=== PATIENT | female | born 1945 | race Caucasian/White ===

== ENCOUNTER → 2019-08-11 | Emergency (ER) | payer MEDICARE ==
[~2019-08-11] VITALS: Ht 165.1 cm; Wt 68.2 kg
[~2019-08-11] MED LIST: ALEN70TA15; IPRA30SP; LEVO50TA PO; LORazepam 2 mg/ml vial IM ONE; MELO7.5T12 PO; ziprasidone 20mg capsule PO SCH; ziprasidone IM 20mg inj **IM only IM ONE
--- NOTE | 2019-08-11 17:42 | NUR ---
found not in pts purse, sister gordon simental [phone]
[2019-08-11 17:43] LABS: BASOPHILS # (AUTO) 0.1 X10'3 (0-0.2); EOSINOPHILS # (AUTO) 0.2 X10'3 (0-0.9); EOSINOPHILS % (AUTO) 2.3 % (0-6); HEMATOCRIT 42.2 % (35.0-45.0); HEMOGLOBIN 14.2 g/dl (12.0-16.0); LYMPHOCYTES # (AUTO) 1.6 X10'3 (1.1-4.8); LYMPHOCYTES % (AUTO) 19.7 % (21-51); MEAN CORPUSCULAR HEMOGLOBIN 32.1 PG (27.0-31.0); MEAN CORPUSCULAR HGB CONC 33.7 g/dL (33.0-36.5); MEAN CORPUSCULAR VOLUME 95.2 FL (78-98); MEAN PLATELET VOLUME 8.6 FL (7.4-10.4); MONOCYTES # (AUTO) 0.5 X10'3 (0-0.9); MONOCYTES % (AUTO) 6.2 % (2-12); NEUTROPHILS # (AUTO) 5.6 X10'3 (1.8-7.7); NEUTROPHILS % (AUTO) 70.8 % (42-75); PLATELET COUNT 254 X10'3 (140-440); RED BLOOD COUNT 4.44 X10'6 (4.20-5.60); RED CELL DISTRIBUTION WIDTH 13.3 % (11.5-14.5); WHITE BLOOD COUNT 7.9 X10'3 (4.5-11.0)
--- NOTE | 2019-08-11 17:46 | NUR ---
pt unable to void at this time, will ask again later
[2019-08-11 17:57] LABS: ALANINE AMINOTRANSFERASE 20 U/L (12-78); ALBUMIN 3.6 G/DL (3.4-5.0); ALBUMIN/GLOBULIN RATIO 0.9 (1.1-1.5); ALKALINE PHOSPHATASE 103 IU/L (46-116); ANION GAP 4 (8-16); ASPARTATE AMINO TRANSFERASE 17 U/L (10-37); BLOOD UREA NITROGEN 23 MG/DL (7-18); BUN/CREATININE RATIO 21.1 (6.6-38.0); CALCIUM 8.9 MG/DL (8.5-10.1); CHLORIDE 107 MMOL/L (99-107); CREATININE 1.09 MG/DL (0.40-0.90); ETHANOL < 0.010 GM/DL (0.0-0.010); GLUCOSE 112 MG/DL (70-104); POTASSIUM 4.9 MMOL/L (3.5-5.1); SODIUM 143 MMOL/L (135-145); TOTAL CARBON DIOXIDE 31.9 MMOL/L (24-32); TOTAL PROTEIN 7.6 G/DL (6.4-8.2); eGFR 49 ML/MIN
[2019-08-11 18:43] LABS: CLARITY,URINE CLEAR (Clear); COLOR,URINE YELLOW (Yellow); GLUCOSE, URINE NEGATIVE (Neg); KETONES,URINE NEGATIVE (Neg); LEUKOCYTE ESTERASE ,URINE NEGATIVE (Neg); NITRITES, URINE NEGATIVE (Neg); OCCULT BLOOD,URINE TRACE-INTACT (Neg); PH,URINE 8.5 (4.8-8.0); PROTEIN,URINE NEGATIVE (Neg)
[2019-08-11 18:51] LABS: UA COLLECTION TYPE CLN CATCH MIDSTREAM
[2019-08-11 18:52] LABS: AMORPHOUS PHOSPHATES 1+; BACTERIA,URINE FEW /HPF (Neg); RBC,URINE 0-2 /HPF (0-2); SQUAMOUS EPITHELIAL CELL,UR FEW /LPF (FEW); WBC,URINE NONE SEEN /HPF (0-4)
[2019-08-11 19:00] LABS: URINE AMPHETAMINE SCREEN NEGATIVE (Neg); URINE BARBITUATE SCREEN NEGATIVE (Neg); URINE BENZODIAZEPINES SCREEN NEGATIVE (Neg); URINE CANNABINOID SCREEN NEGATIVE (Neg); URINE COCAINE SCREEN NEGATIVE (Neg); URINE METHADONE SCREEN NEGATIVE (Neg); URINE OPIATE SCREEN NEGATIVE (Neg); URINE PHENCYCLIDINE SCREEN NEGATIVE (Neg)
--- NOTE | 2019-08-11 20:01 | NUR ---
PT BROUGHT OVER FROM ED RM 16 TO OVERFLOW BED 25. PT STABLE AND ABLE TO ANSWER QUESTIONS. SHE DOES SEEM TO HAVE SOME CONFUSION BUT IS A&O X4; JUST UNSURE TO WHY SHE WAS BROUGHT IN. SHE ALSO COULD NOT GIVE ME A STRAIGHT ANSWER TO WHERE SHE RESIDES. PT STATES SHE DOES NOT HAVE ANY INTENTIONS ON HURTING HERSELF OR OTHERS. PT IS COMFORTABLE AND EATING DINNER. SHE DOES NOT APPEAR TO BE IN ANY DISCOMFORT OR DISTRESS. WILL CONTINUE TO MONITOR.
--- NOTE | 2019-08-11 20:05 | NUR ---
PT UNABLE TO ANSWER IF SHE TAKES ANY MEDICATIONS; SHE STATES THAT THEY G[facility]; SHE THINKS IT'S [facility] MEDICINE.
--- NOTE | 2019-08-11 21:00 | NUR ---
PT RESTING COMFORTABLY WITH NO SIGNS OF DISTRESS OR DISCOMFORT. RR REGULAR AND UNLABORED. WILL CONTINUE TO MONITOR.
--- NOTE | 2019-08-11 22:15 | NUR ---
PT SLEEPING AND DOES NOT APPEAR TO BE IN ANY DISCOMFORT OR DISTRESS. RR REGUALR AND UNLABORED. WILL CONTINUE TO MONITOR.
--- NOTE | 2019-08-12 00:02 | NUR ---
PT SLEEPING COMFORTABLY. NO SIGNS OF DISTRESS OR DISCOMFORT NOTED. RR REGULAR AND UNLABORED. WILL CONTINUE TO MONITOR.
--- NOTE | 2019-08-12 01:53 | NUR ---
PT CONTINUES TO SLEEP WITH NO SIGNS OF DISTRESS OR DISCOMFORT. RR REGULAR AND UNLABORED. WILL CONTINUE TO MONITOR.
--- NOTE | 2019-08-12 03:15 | NUR ---
PT SLEEPING ON LEFT SIDE; NO SIGNS OF DISTRESS NOTED. BREATHING IS NORMAL, UNLABORED AND REGULAR. WILL CONTINUE TO MONITOR.
--- NOTE | 2019-08-12 05:15 | NUR ---
PT APPEARS TO BE ASLEEP; WITH NO SIGNS OF DISTRESS OR DISCOMFORT. BREATHING RATE IS REGULAR, UNLABORED AND WNL. WILL CONTINUE TO MONITOR.
--- NOTE | 2019-08-12 05:26 | NUR ---
REVIEWED PT'S VS; NO CONCERNS WITH READINGS.
--- NOTE | 2019-08-12 06:30 | NUR ---
Resting with eyes closed, respirations normal.
--- NOTE | 2019-08-12 10:12 | NUR ---
SHERIN Rn seeing patient
--- NOTE | 2019-08-12 19:24 | NUR ---
Patient pleasantly confused, resting comfortably in hospital bed. She cannot tell me anything other than her .
--- NOTE | 2019-08-13 06:30 | NUR ---
pt is resting in bed.
--- NOTE | 2019-08-13 07:30 | NUR ---
pt ambulated to the bathroom
--- NOTE | 2019-08-13 08:30 | NUR ---
pt resting in bed eating breakfast
--- NOTE | 2019-08-13 08:37 | NUR ---
case management and group social worker paged about placement issues
--- NOTE | 2019-08-13 09:30 | NUR ---
pt is resting in bed no issues at this time
--- NOTE | 2019-08-13 10:30 | NUR ---
pt is resting in her bed
--- NOTE | 2019-08-13 11:30 | NUR ---
no issues at this time. pt is sitting in her bed
--- NOTE | 2019-08-13 12:30 | NUR ---
pt is resting in bed
--- NOTE | 2019-08-13 13:30 | NUR ---
pt is resting in bed
--- NOTE | 2019-08-13 14:30 | NUR ---
pt resting in bed.
--- NOTE | 2019-08-13 15:30 | NUR ---
judi is working on placement
--- NOTE | 2019-08-13 16:30 | NUR ---
no issues at this time
--- NOTE | 2019-08-13 19:37 | NUR ---
Patient is pleasantly confused, up to the bathroom w/o problem. She follows commands and is not a problem.
--- NOTE | 2019-08-14 05:53 | NUR ---
Patient wandering around confused and aggitated. She wants to leave and doesn't understand why we won't let her, [facility]. Jennifer cannot tell us where she is, what city she is in, or how she got here. All she knows is her name and . We have been able to redirect her so far, but she is getting more aggitated.
--- NOTE | 2019-08-14 06:43 | NUR ---
when this RN first came on shift pt was talking to night RN and tech about needing to get back to [place] and she didn't know why she was here. Pt starting to get agitated. Appeared that pt was not retaining information given to her by nursing staff as she was asking the same querstions over again. Pt finally settled and sat in bed. Pt will occationally get up quietly and walk around aimlessly and read signs on the wall, then go back and lay in bed. now laying in bed quietly, appearing to be calm at this time.
--- NOTE | 2019-08-14 08:34 | NUR ---
sitting up in bed eating breakfast. calm, quiet, coopertive.
--- NOTE | 2019-08-14 10:09 | NUR ---
resting quietly in bed.
--- NOTE | 2019-08-14 10:52 | NUR ---
Joan with [employer] at bedside to interview patient.
--- NOTE | 2019-08-14 11:37 | NUR ---
pt up and walking around the unit, asking where her shoes are. RN reassured her all of her belongings were together and safe. pt forgets conversation several minutes later and asks again where her belongings are. wandering around the unit, reading signs posted on the [facility], making her bed and folding sheets. asking why she can't leave the unit and stating she doesn't like being told what she can and can't do. pt starting to get aggitated.
--- NOTE | 2019-08-14 12:58 | NUR ---
sitting up in bed eating lunch. calm.
--- NOTE | 2019-08-14 14:43 | NUR ---
up to restroom independently. calm. returned to bed and continued to rest quietly.
--- NOTE | 2019-08-14 15:52 | NUR ---
resting quietly in bed
--- NOTE | 2019-08-14 17:54 | NUR ---
currently sitting up in bed. will walk around the unit occationally. warm blanket provided. pt calm and pleasant.
--- NOTE | 2019-08-14 19:00 | NUR ---
Pt eating dinner and reading magazines.
--- NOTE | 2019-08-14 20:00 | NUR ---
Pt resting quietly.
--- NOTE | 2019-08-14 21:00 | NUR ---
Pt up to bathroom. Pt cooperative and smiling.
--- NOTE | 2019-08-14 22:00 | NUR ---
Pt resting quietly, respirations normal, no s/s of distress.
--- NOTE | 2019-08-14 23:05 | NUR ---
Pt resting quietly, respirations normal, no s/s of distress.
--- NOTE | 2019-08-15 01:00 | NUR ---
Pt resting quietly, respirations normal, no s/s of distress.
--- NOTE | 2019-08-15 02:00 | NUR ---
Pt resting quietly, respirations normal, no s/s of distress.
--- NOTE | 2019-08-15 03:54 | NUR ---
Pt resting quietly, respirations normal, no s/s of distress.
--- NOTE | 2019-08-15 07:00 | NUR ---
Pt is sleeping on her back. Respirations even and unlabored.
--- NOTE | 2019-08-15 09:00 | NUR ---
Sitting up in bed. Pt is calm and cooperative. She is still confused. Only knows her name, but does not know where she is or how she got here.
--- NOTE | 2019-08-15 11:00 | NUR ---
Pt sitting up in bed, pleasant. Has ambulated to bathroom, steady gait noted. Forgetful.
--- NOTE | 2019-08-15 13:38 | NUR ---
Breaking primary RN, pt has just finsihed her lunch, she is appreciative with staff, no s/s of distress observed
--- NOTE | 2019-08-15 15:00 | NUR ---
Needs frequent reorienting. She is now sleeping.
--- NOTE | 2019-08-15 17:00 | NUR ---
Up to bathroom multiple times. Calm and cooperative.
[2019-08-15 17:52] VITALS: BP 129/66
--- NOTE | 2019-08-15 18:50 | NUR ---
pt is wondering around the unit trying to elope. She just raised a fist aggresivelly towards me while Hugo and I where trying to redirect her. Dr. Dennis is aware. new orders being imputted.
--- NOTE | 2019-08-15 19:30 | NUR ---
Patient calmly sitting in bed reading magazine. She asked not to be given injection. She states she is no longer feeling overwhelmed or aggitated. Did not administer IM [place]. aware.
--- NOTE | 2019-08-16 00:33 | NUR ---
patient is actting aggresive alluding to visual halucinations. she is telling us to leave.
--- NOTE | 2019-08-16 00:58 | NUR ---
patient out of bed attempting to leave, patient stating that she is in somebody els's house. Patient also postured as though she was going to hit nursing staff, but didn't actually swing. orders received for 2mg ativan im. medication given at this time patient escorted to the bathroom and then returned to bed and settled in with warm blanket.
== END | disposition home or self-care (01) ==
LOC: ER 17:21
DX: F79 Unspecified intellectual disabilities (principal)
CPT/HCPCS: 36415; 80053; 80305; 80320; 81001; 85025; 99285